=== PATIENT | male | born 1960 | race Caucasian/White ===

== ENCOUNTER 2018-10-10 14:27 | Emergency (ER) | payer BC ==
[2018-10-10 14:44] VITALS: BP 152/89
--- NOTE | 2018-10-10 15:30 | ED ---
Respiratory - HPI Summary HPI Summary: pt is a 57 year old male who has smoked since he has been 11 years old. He states he has been having a productive cough and having a lot of nasal congestion. He denies any fever or chills. He stated that he has lost 9 lbs in the past 3 weeks. he does not have a pcp. he states that he does not go to the doctor. his sister who is here with him convinced him - History of Current Complaint Chief Complaint: UCRespiratory Stated Complaint: COUGH,ACHES,CHILLS Hx Obtained From: Patient Onset/Duration: Lasting Weeks - 3 weeks Timing: Constant Initial Severity: Moderate Current Severity: Moderate Pain Intensity: 7 Character: Wheezing, Cough (Productive) Sputum Amount: Small Sputum Color: Yellow, Green Alleviating Factor(s): Nothing Associated Signs and Symptoms: Wheezing, Nasal Congestion - Allergy/Home Medications Allergies/Adverse Reactions: Allergies Allergy/AdvReac Type Severity Reaction Status Date / Time No Known Allergies Allergy Verified 10/10/18 14:44 Home Medications: Home Medications Loratadine 10 mg PO DAILY 10/10/18 [History Confirmed 10/10/18] PMH/Surg Hx/FS Hx/Imm Hx Previously Healthy: Yes - pt has not seen a doctor in many years - Surgical History Surgery Procedure, Year, and Place: [place] as a child Infectious Disease History: No Infectious Disease History: Denies: Traveled Outside the [place] in Last 30 Days - Social History Alcohol Use: None Substance Use Type: Reports: Marijuana Substance Use Comment - Amount & Last Used: daily usage Smoking Status (MU): Heavy Every Day Tobacco Smoker Type: Cigarettes Amount Used/How Often: 1 1/2 pack per day Length of Time of Smoking/Using Tobacco: since age 11 Have You Smoked in the Last Year: Yes Review of Systems Constitutional: Negative Negative: Blurred Vision, Erythema Negative: Epistaxis, Sore Throat, Ear Ache Negative: Palpitations, Chest Pain Positive: Cough Positive: Abdominal Pain - with his cough. Negative: Vomiting, Diarrhea Negative: dysuria, frequency, flank pain, hematuria Positive: Arthralgia Negative: Rash Negative: Headache, Weakness, Syncope, Slurred Speech Negative: Anxious All Other Systems Reviewed And Are Negative: No Physical Exam Triage Information Reviewed: Yes Vital Signs On Initial Exam: Initial Vitals Temp Pulse Resp BP Pulse Ox 99.4 F 71 16 152/89 99 10/10/18 14:39 05/13/19 14:39 10/10/18 14:39 10/10/18 14:39 10/10/18 14:39 Vital Signs Reviewed: Yes Appearance: Positive: Well-Appearing, No Pain Distress, Well-Nourished Skin: Positive: Warm, Dry Eyes: Positive: Normal, EOMI, MARYAN ENT: Positive: Normal ENT inspection, Hearing grossly normal, Pharynx normal Neck: Positive: Supple, Nontender Respiratory/Lung Sounds: Positive: Clear to Auscultation, Breath Sounds Present Cardiovascular: Positive: Normal, RRR, Pulses are Symmetrical in both Upper and Lower Extremities Abdomen Description: Positive: Nontender, Soft Bowel Sounds: Positive: Present Musculoskeletal: Positive: Normal Neurological: Positive: Normal, Sensory/Motor Intact, Alert, Oriented to Person Place, Time, CN Intact II-III Psychiatric: Positive: Normal AVPU Assessment: Alert Images - Images Lungs, Front ([place]): 1 - 1.5cm right upper lobe nodule Diagnostics - Vital Signs Vital Signs Temp Pulse Resp BP Pulse Ox 10/10/18 14:39 99.4 F 71 16 152/89 99 - Laboratory Lab Statement: Any lab studies that have been ordered have been reviewed, and results considered in the medical decision making process. Disposition - Course Course Of Treatment: Clinically, pt has a bronchitis. I discussed with pt the fact that he has a 1.5cm right upper lobe nodule. My concern with his long standing smoking history is that this may be cancer. I did inform him that this may also be absolutely nothing. He does not have a pcp. I gave him a referral and a copy of the chest xray reading and a copy of the CD. He promised in front of his sister that he would follow up on this finding. I told him that knowledge is powerful. He can only make a sound decision on what he wants to do if he has all the information. He agreed. pt discharged with a rx for zpak, steroids, and albuterol mdi. he was given a spacer with instructions prior to discharge. - Diagnoses Provider Diagnoses: Bronchitis, Pulmonary nodule, Pulmonary nodule, right Discharge - Sign-Out/Discharge Documenting (check all that apply): Patient Departure All imaging exams completed and their final reports reviewed: Yes - Discharge Plan Condition: Stable Disposition: HOME Prescriptions: Albuterol HFA INHALER* [Ventolin HFA Inhaler*] 2 puff INH Q4H PRN #1 mdi MDD 12 PRN Reason: Wheezing Azithromyxin MAGGIE (NF) [Z-Maggie (Zithromax) 250 mg tabs #6] 2 tab PO .TODAY, THEN 1 DAILY #6 tab predniSONE TAB* [Deltasone 20 MG TAB*] 60 mg PO DAILY #15 tab Patient Education Materials: Acute Bronchitis (ED), Pulmonary Nodules (ED) Forms: *Work Release Referrals: No Primary Care Phys,NOPCP [Primary Care Provider] - [facility] [Provider Group] Additional Instructions: I have sent 3 prescriptions to your pharmacy. One is for steroids, the second one is for an inhaler and the third one is for the antibiotic. use the spacer with the inhaler. YOu have received a copy of your chest xray report plus the CD with the image. there is a 1.5cm right pulmonary nodule. You MUST have a CT of your chest with contrast. the nodule may be nothing. However, it may be cancer. you need to find out. Please call the referal I gave you on your discharge papers and call for an appointment as soon as possible. return if worse or any new symptoms. - Billing Disposition and Condition Condition: STABLE Disposition: Home
== END 2018-10-10 15:41 | disposition home or self-care (01) ==
LOC: UCCORT 14:27
DX: J40 Bronchitis, not specified as acute or chronic (principal); R91.1 Solitary pulmonary nodule; F17.210 Nicotine dependence, cigarettes, uncomplicated
CPT/HCPCS: 71046; 99212; G0463